=== PATIENT | female | born 1950 | race Caucasian/White ===

== ENCOUNTER 2016-08-13 08:05 | Emergency (ER) | payer BC, OTHER ==
[~2016-08-13] VITALS: Ht 157.5 cm; Wt 68.5 kg
[~2016-08-13 08:05] MED LIST: IBUP400T20 PO
[2016-08-13 08:18] VITALS: BP 122/65; PULSE 81; RESP 18; TEMP 99.2; O2SAT 96
[2016-08-13] MEDS ORDERED: ONDANSETRON ODT 4 MG TAB PO ONE (09:15)
[2016-08-13] MEDS ORDERED: ZOFR4TAB3 SL (09:20)
--- NOTE | 2016-08-13 09:24 | PD ---
HPI Chief Complaint: GI Complaint Time Seen by Provider: 08:59 Travel History International Travel<30 days: No Contact w/Intl Traveler<30days: No Traveled to known affect area: No History of Present Illness HPI The patient was seen and examined in the presence of the nurse. She complains of runny nose and congestion and cough and body aches and nausea and vomiting. The nausea and vomiting is what bothers her most. No diarrhea. She had a temp of 101 oral thermometer reading at home yesterday.'s. Symptoms severity is moderate. PFSH Past Medical History Diminished Hearing: No Tetanus Vaccination: Unknown Influenza Vaccination: No ?: Not Past Surgical History Genitourinary Surgery: Yes Other Surgery: Yes (bladder) Social History Alcohol Use: Yes (occ) Tobacco Use: No Substance Use: No Allergies-Medications (Allergen,Severity, Reaction): Coded Allergies: Sulfa (Verified Allergy, Severe, hives, 08/13/16) Penicillin (Verified Adverse Reaction, Severe, VOMITTING, 08/13/16) Reported Meds & Prescriptions Reported Meds & Active Scripts Active Review of Systems General / Constitutional: Positive: Fever HENT: No: Headaches Cardiovascular: No: Chest Pain or Discomfort Respiratory: Positive: Cough Physical Exam Narrative GENERAL: Well-nourished, well-developed patient in no apparent distress. SKIN: Warm and dry. HEAD: Atraumatic. Normocephalic. EYES: Pupils equal and round. No scleral icterus. No injection or drainage. ENT: No nasal bleeding or discharge. Mucous membranes pink and moist. Throat clear CARDIOVASCULAR: Regular rate and rhythm. No murmur appreciated. RESPIRATORY: No accessory muscle use. Clear to auscultation. Breath sounds equal bilaterally. GASTROINTESTINAL: Abdomen soft, non-tender, nondistended. Hepatic and splenic margins not palpable. MUSCULOSKELETAL: No obvious deformities. No clubbing. No cyanosis. No edema. NEUROLOGICAL: Awake and alert. No obvious cranial nerve deficits. Motor grossly within normal limits. Normal speech. PSYCHIATRIC: Appropriate mood and affect; insight and judgment normal. Data Data Last Documented VS Vital Signs Date Time Temp Pulse Resp B/P Pulse Ox O2 Delivery O2 Flow Rate FiO2 08/13/16 09:20 16 08/13/16 08:18 99.2 81 122/65 96 Orders Ondansetron Odt (Zofran Odt) (08/13/16 09:15) MDM Medical Decision Making Medical Screen Exam Complete: Yes Emergency Medical Condition: Yes Medical Record Reviewed: Yes Differential Diagnosis Viral Syndrome, gastritis, pneumonia Narrative Course I have reviewed the patient's electronic medical record. Patient's exam is normal and her vitals are normal She is euvolemic I don't see any indication for antibiotics I suspect she has a viral syndrome and gradual resolution is expected Gave her Zofran dose now and prescription for same Advised to return if she worsens Does not look dehydrated Diagnosis Primary Impression: Acute viral syndrome Additional Instructions: The patient was advised to follow up with their physician and return if they worsen. I have recommended clear liquids for 24 hours, then gradually advance as tolerated. Med/Other Pt SpecificInfo: Prescription(s) given Scripts Ondansetron Odt (Zofran Odt)4 Mg Tab4 Mg SL Q6HR PRN (Nausea/Vomiting) #15 TAB Ref 0 Prov:Lawrence Mistry MD 08/13/16 Disposition: 01 DISCHARGE HOME Condition: Stable Lawrence Mistry MD Aug 13, 2016 09:24
== END 2016-08-13 10:50 | disposition home or self-care (01) ==
LOC: PHED 08:05
DX: B34.9 Viral infection, unspecified (principal)
CPT/HCPCS: 99283